=== PATIENT | male | born 1940 | race Caucasian/White ===

== ENCOUNTER 2017-03-15 07:58 | Day surgery (SDC) | payer MEDICARE ==
[~2017-03-15] VITALS: Ht 172.7 cm; Wt 84.5 kg
[~2017-03-15 07:58] MED LIST: CYCLOPENTOLATE HCL 1% 2 ML OPHTHALMIC SOLUTION ONE; FLURBIPROFEN SODIUM 0.03% 2.5 ML OPHTHALMIC SOLUTION ONE; PHENYLEPHRINE HCL 2.5% 2 ML OPHTHALMIC SOLUTION ONE; RINGERS SOLUTION,LACTATED 500 ML IV ONE; TROPICAMIDE 1% 2 ML OPHTHALMIC SOLUTION ONE
[2017-03-15] MEDS ORDERED: NEOMYCIN/POLYMYXIN B/DEXAMETH 3.5 GM OPHTHALMIC OINTMENT OS ONE (07:59)
[2017-03-15] MEDS ORDERED: TETRACAINE HCL/PF 0.5% 4 ML OPHTHALMIC SOLUTION OS ONE (07:59)
[2017-03-15] MEDS ORDERED: LIDOCAINE HCL/PF 1% 2 ML VIAL IM ONE (07:59)
[2017-03-15] MEDS ORDERED: EPINEPHrine 1:1,000 [1 MG/ML] AMP IM ONE (07:59)
[2017-03-15] MEDS ORDERED: HYALURONATE SODIUM 12 MG/ML 0.8 ML SYRINGE IO ONE (07:59)
[2017-03-15] MEDS ORDERED: BALANCED SALT 15 ML OPHTHALMIC IRRIG.SOLN OS ONE (07:59)
[2017-03-15] MEDS ORDERED: POVIDONE-IODINE 10% 15 ML SOLUTION UD TP ONE (07:59)
[2017-03-15] MEDS ORDERED: HYALURONATE SOD/CHONDROITIN SOD 0.5 ML VIAL IO ONE (07:59)
[2017-03-15] MEDS ORDERED: 0.9% SODIUM CHLORIDE 10 ML VIAL IV ONE (07:59)
[2017-03-15] MEDS ORDERED: TETRACAINE HCL VISCOUS 0.5% 5 ML OPHTHALMIC SOLUTION OS ONE (07:59)
[2017-03-15] MEDS ORDERED: RINGERS SOLUTION,LACTATED 500 ML IV ONE (08:00)
[2017-03-15] MEDS ORDERED: B CO1TAB7 PO (08:42)
[2017-03-15] MEDS ORDERED: AMIO200T2 PO (08:42)
[2017-03-15] MEDS ORDERED: LISI2.5T2 PO (08:42)
[2017-03-15] MEDS ORDERED: GABA-531 PO (08:42)
[2017-03-15] MEDS ORDERED: ATOR20TA86 PO (08:42)
[2017-03-15] MEDS: TROPICAMIDE 1% 2 ML OPHTHALMIC SOLUTION OD SCH ×3 (09:01→09:12)
[2017-03-15] MEDS: PHENYLEPHRINE HCL 2.5% 2 ML OPHTHALMIC SOLUTION OD SCH ×3 (09:01→09:11)
[2017-03-15] MEDS: FLURBIPROFEN SODIUM 0.03% 2.5 ML OPHTHALMIC SOLUTION OD SCH ×3 (09:01→09:12)
[2017-03-15] MEDS: CYCLOPENTOLATE HCL 1% 2 ML OPHTHALMIC SOLUTION OD SCH ×3 (09:02→09:11)
== END 2017-03-15 11:55 | disposition home or self-care (01) ==
LOC: SURGERY 07:58
PROVIDERS: ATTEND Ophthalmology
DX: E11.36 Type 2 diabetes mellitus with diabetic cataract (principal); H25.89 Other age-related cataract; E66.9 Obesity, unspecified; I10 Essential (primary) hypertension; E78.00 Pure hypercholesterolemia, unspecified; F10.21 Alcohol dependence, in remission; Z68.28 Body mass index [BMI] 28.0-28.9, adult; Z79.899 Other long term (current) drug therapy
CPT/HCPCS: 66982; 93005; C1780; J0171; J3490 ×2; J7120

== ENCOUNTER 2017-06-14 07:24 | Day surgery (SDC) | payer MEDICARE ==
[~2017-06-14] VITALS: Ht 167.6 cm; Wt 81.8 kg
[~2017-06-14 07:24] MED LIST changes: +AMIO200T2 PO; +ATOR20TA86 PO; +B CO1TAB7 PO; +GABA-531 PO; +LISI2.5T2 PO; +RINGERS SOLUTION,LACTATED 0 ML IV ONE; -RINGERS SOLUTION,LACTATED 500 ML IV ONE
[2017-06-14] MEDS ORDERED: MIDAZOLAM HCL 2 MG/2 ML VIAL IVP ONE (07:25)
[2017-06-14] MEDS ORDERED: FentaNYL CITRATE-PF 100 MCG/2 ML VIAL IVP ONE (07:25)
[2017-06-14] MEDS ORDERED: RINGERS SOLUTION,LACTATED 500 ML IV ONE ×2 (07:30→07:40)
[2017-06-14] MEDS ORDERED: PHENYLEPHRINE HCL 2.5% 2 ML OPHTHALMIC SOLUTION ONE (07:39)
[2017-06-14] MEDS ORDERED: CYCLOPENTOLATE HCL 1% 2 ML OPHTHALMIC SOLUTION ONE (07:39)
[2017-06-14] MEDS ORDERED: TROPICAMIDE 1% 2 ML OPHTHALMIC SOLUTION ONE (07:39)
[2017-06-14] MEDS: FLURBIPROFEN SODIUM 0.03% 2.5 ML OPHTHALMIC SOLUTION OS SCH ×3 (08:31→08:43)
[2017-06-14] MEDS: PHENYLEPHRINE HCL 2.5% 2 ML OPHTHALMIC SOLUTION OS SCH ×3 (08:32→08:43)
[2017-06-14] MEDS: TROPICAMIDE 1% 2 ML OPHTHALMIC SOLUTION OS SCH ×3 (08:33→08:44)
[2017-06-14] MEDS: CYCLOPENTOLATE HCL 1% 2 ML OPHTHALMIC SOLUTION OS SCH ×3 (08:34→08:44)
[2017-06-14 09:13] LABS: GLUCOMETER DEV NAME(LOC) SDS 5; GLUCOSE,POINT OF CARE 91 MG/DL (70-110)
[2017-06-14] MEDS ORDERED: MethylPREDNISolone SOD SUCC 40 MG/ML VIAL ONE (10:31)
== END 2017-06-14 12:00 | disposition home or self-care (01) ==
LOC: SURGERY 07:24
PROVIDERS: ATTEND Ophthalmology
DX: E11.36 Type 2 diabetes mellitus with diabetic cataract (principal); H25.89 Other age-related cataract; I10 Essential (primary) hypertension; E78.00 Pure hypercholesterolemia, unspecified; Z72.89 Other problems related to lifestyle; Z98.41 Cataract extraction status, right eye; Z87.891 Personal history of nicotine dependence; Z79.899 Other long term (current) drug therapy
CPT/HCPCS: 66982; 82962; C1780; J2250; J2920; J3010; J7120

== ENCOUNTER 2024-04-21 09:19 | Emergency (ER) | payer MEDICARE ==
[~2024-04-21] VITALS: Ht 175.3 cm; Wt 79.5 kg
[~2024-04-21 09:19] MED LIST changes: +AMIO200 PO; -AMIO200T2 PO; +ATOR20TA PO; -ATOR20TA86 PO; -CYCLOPENTOLATE HCL 1% 2 ML OPHTHALMIC SOLUTION ONE; -FLURBIPROFEN SODIUM 0.03% 2.5 ML OPHTHALMIC SOLUTION ONE; +GABA-1181 PO; -GABA-531 PO; +LISI2.5T13 PO; -LISI2.5T2 PO; -PHENYLEPHRINE HCL 2.5% 2 ML OPHTHALMIC SOLUTION ONE; -RINGERS SOLUTION,LACTATED 0 ML IV ONE; -TROPICAMIDE 1% 2 ML OPHTHALMIC SOLUTION ONE
[2024-04-21 09:25] VITALS: TEMP 97.9
[2024-04-21 10:01] VITALS: BP 125/86; PULSE 68; RESP 18; O2SAT 100
== END 2024-04-21 10:02 | disposition home or self-care (01) ==
LOC: EMS 09:22
DX: D22.39 Melanocytic nevi of other parts of face (principal); Z79.899 Other long term (current) drug therapy; Z98.890 Other specified postprocedural states
CPT/HCPCS: 99281; Z7502